=== PATIENT | female | born 1935 | race Caucasian/White ===

== ENCOUNTER 2017-11-03 08:15 | Emergency (ER) | payer OTHER ==
[2017-11-03 08:32] VITALS: BP 115/64; PULSE 89; BMI 23.0
--- NOTE | 2017-11-03 08:38 | PDOC ---
History of Present Illness - General Chief Complaint: Cold Symptoms Stated Complaint: COUGH,FEVER Time Seen by Provider: 11/03/17 08:19 History Source: Patient (Patient walked inalong with with a complaint of fever, dry hacking cough and weakness for 2 days duration, Did not have the flu vaccine) Exam Limitations: No Limitations - History of Present Illness Timing/Duration: 24 hours Severity: moderate Modifying Factors: improves with: rest Associated Symptoms: reports: cough, fever/chills Beta Michaela Contraindications(Core Measure): Yes: Not Prescribed Past History - Travel Traveled outside of the country in the last 30 days: No Close contact w/someone who was outside of country & ill: No - Past Medical History Allergies/Adverse Reactions: Allergies Allergy/AdvReac Type Severity Reaction Status Date / Time No Known Allergies Allergy Verified 11/03/17 08:16 Home Medications: Ambulatory Orders No Home Medications 0 dose .ROUTE UTDICT 11/21/12 Guaifenesin Dm [Robitussin Dm -] 10 ml PO BID #100 ml 11/03/17 Ibuprofen [Motrin -] 400 mg PO BID #14 tablet 11/03/17 Oseltamivir Phosphate [Tamiflu] 75 mg PO BID #10 capsule 11/03/17 Other medical history: denied - Surgical History Appendectomy: Yes - Immunization History TDAP Vaccination: Yes Immunization Up to Date: Yes - Suicide/Smoking/Psychosocial Hx Smoking Status: No Smoking History: Never smoked Have you smoked in the past 12 months: No Number of Cigarettes Smoked Daily: 0 Hx Alcohol Use: No Drug/Substance Use Hx: No Substance Use Type: None Review of Systems - Review of Systems Able to Perform ROS?: Yes Is the patient limited Spanish proficient: Yes Constitutional: Yes: Symptoms Reported, Chills, Fever, Weakness HEENTM: Yes: See HPI Respiratory: Yes: See HPI Cardiac (ROS): No: Symptoms Reported, See HPI, Chest Pain, Edema, Irregular Heart Rate, Lightheadedness, Palpitations, Syncope, Chest Tightness, Other ABD/GI: No: Symptoms Reported, See HPI, Abdominal Distended, Abd. Pain w/ defecation, Blood Streaked Bowels, Constipated, Diarrhea, Difficulty Swallowing , Nausea, Poor Appetite, Poor Fluid Intake, Rectal Bleeding, Vomiting, Indigestion, Abdominal cramping, Tarry Stools, Other ED Treatment Course - LABORATORY CBC & Chemistry Diagram: 11/03/17 09:20 11/03/17 09:20 Medical Decision Making - Medical Decision Making Patient observed every hour by the hour, for 3 hours, receiving fluids, Tylenol iv , first dose of Tamiflu po 11/04/17 14:00 *DC/Admit/Observation/Transfer Diagnosis at time of Disposition: Acute viral syndrome, Influenza A - Discharge Dispostion Disposition: HOME Condition at time of disposition: Improved - Prescriptions Prescriptions: Guaifenesin Dm [Robitussin Dm -] 10 ml PO BID #100 ml Ibuprofen [Motrin -] 400 mg PO BID #14 tablet Oseltamivir Phosphate [Tamiflu] 75 mg PO BID #10 capsule - Referrals Referrals: Sandra Johnson MD [Staff Physician] - - Patient Instructions Printed Discharge Instructions: How to Avoid a Cold or Flu, DI for Viral Upper Respiratory Infection -- Adult Additional Instructions: Fluids, Motrin if fever - Post Discharge Activity
[2017-11-03 09:53] LABS: BASO % 0.3 % (0-2.0); EOS % 0.1 % (0-4.5); HEMATOCRIT 41.6 % (32.4-45.2); LYMPH % 13.2 % (8-40); MCH 31.4 pg (25.7-33.7); MCHC 33.7 g/dl (32.0-36.0); MEAN CELL VOLUME 93.1 fl (80-96); MEAN PLT VOLUME 8.4 fl (7.5-11.1); MONO % 16.7 % (3.8-10.2); NEUT % 69.7 % (42.8-82.8); PLATELET COUNT 130 K/MM3 (134-434); RBC 4.47 M/mm3 (3.60-5.2); RDW 12.1 % (11.6-15.6); WHITE BLOOD COUNT 5.2 K/mm3 (4.0-10.8)
[2017-11-03 10:11] LABS: ALBUMIN 3.9 g/dl (3.5-5.0); ALK PHOS 63 U/L (32-92); ANION GAP 10 (8-16); BILIRUBIN,TOTAL 0.5 mg/dl (0.2-1.0); BLOOD UREA NITROGEN 15 mg/dl (7-18); CALCIUM 8.9 mg/dl (8.4-10.2); CHLORIDE 102 mmol/L (98-107); CO2 25 mmol/L (22-28); POTASSIUM 3.9 mmol/L (3.5-5.1); SGOT/AST 24 U/L (10-42); SGPT/ALT 20 U/L (10-40); SODIUM 137 mmol/L (136-145); TOT PROT 6.5 g/dl (6.4-8.3)
[2017-11-03] MEDS ORDERED: ACETAMINOPHEN INJECTION 100 ML IVPB ONE (10:32)
[2017-11-03] MEDS ORDERED: ACETAMINOPHEN 1000 MG/100 ML VIAL (NON FORMULARY) IVPB ONE ×2 (10:34→10:38)
[2017-11-03] MEDS ORDERED: SODIUM CHLORIDE 1,000 ML IV ONE (10:38)
[2017-11-03] MEDS ORDERED: SODIUM CHLORIDE 1,000 ML IV STA (10:38)
[2017-11-03] MEDS ORDERED: OSELTAMIVIR PHOSPHATE 75 MG CAPSULE PO ONE (10:46)
[2017-11-03] MEDS ORDERED: OSELTAMIVIR PHOSPHATE 75 MG CAPSULE ONE (10:48)
[2017-11-03 11:14] VITALS: TEMP 100
[2017-11-03 12:34] LABS: GLUCOSE,RANDOM 96 mg/dL (74-106)
== END 2017-11-03 12:14 | disposition home or self-care (01) ==
LOC: FER 08:15
PROC: 3E033NZ Introduction of Analgesics, Hypnotics, Sedatives into Peripheral Vein, Percutaneous Approach (ICD-10-PCS; principal; 2017-11-03)
PROC: 3E0337Z Introduction of Electrolytic and Water Balance Substance into Peripheral Vein, Percutaneous Approach (ICD-10-PCS; 2017-11-03)
DX: J09.X2 Influenza due to identified novel influenza A virus with other respiratory manifestations (principal); B34.9 Viral infection, unspecified
CPT/HCPCS: 36415; 71046-TC; 80053; 85025; 87040; 87804; 99282-25